=== PATIENT | female | born 1995 | race Caucasian/White ===

== ENCOUNTER → 2025-08-28 | Day surgery (SDC) | payer BC ==
[~2025-08-28] MED LIST: ACETAMINOPHEN 1000 MG/100 ML 100 ML IV ONE; DEXAMETHASONE SOD PHOS INJ 4 MG/ML SDV ONE; FENTANYL CITRATE/PF 100MCG/2 ML INJ ONE; L ARGININE PO; LIDOCAINE HCL 2% LOCAL INJ 5 ML SDV VIAL INJ ONE; MAGOX 400400 MG PO; MIDAZOLAM HCL 2 MG/2 ML VIAL ONE; ONDANSETRON HCL INJ 2MG/ML 2ML 2 MG/ML VIAL ONE; PROPOFOL IV EMULSION 10 MG/ML 20 ML VIAL ONE; ROCURONIUM BROMIDE 1 ML IV ONE; SEVOFLURANE INHAL SOLN 250 ML PEN BTL ONE; SUGAMMADEX SODIUM 200 MG/2 ML VIAL IV ONE; [UNRECOGNIZED DRUG - OTHER] PO; [UNRECOGNIZED DRUG - OTHER] PO
[2025-08-28] MEDS: LACTATED RINGER'S 1,000 ML ONE (08:13)
[2025-08-28 10:15] VITALS: BP 136/83; PULSE 89; RESP 18; O2SAT 100
== END | disposition home or self-care (01) ==
LOC: OR 06:43
PROVIDERS: ATTEND Otolaryngology Otolaryngology/Facial Plastic Surgery
DX: J34.2 Deviated nasal septum (principal); R09.82 Postnasal drip; Z01.818 Encounter for other preprocedural examination
CPT/HCPCS: 30520; 81025; 88304; 88311; J0131; J1100; J2003; J2250; J2405; J2704; J3010; J7121; 88300